=== PATIENT | male | born 1950 | race Caucasian/White ===

== ENCOUNTER 2018-03-03 09:32 | Day surgery (SDC) | payer OTHER ==
[~2018-03-03] VITALS: Ht 188 cm; Wt 90.8 kg
[~2018-03-03 09:32] MED LIST: Aspir-Trin325 MG; METO50ER; OMEPRAZOLE MAGN20 MG
== END 2018-03-03 12:20 | disposition home or self-care (01) ==
LOC: ORSCSDS 09:32
PROVIDERS: Internal Medicine Gastroenterology
PROC: 0DB98ZX Excision of Duodenum, Via Natural or Artificial Opening Endoscopic, Diagnostic (ICD-10-PCS; principal; 2018-03-03 11:00)
PROC: 0DB68ZX Excision of Stomach, Via Natural or Artificial Opening Endoscopic, Diagnostic (ICD-10-PCS; principal; 2018-03-03 11:00)
DX: D50.9 Iron deficiency anemia, unspecified (principal); K25.9 Gastric ulcer, unspecified as acute or chronic, without hemorrhage or perforation; K44.9 Diaphragmatic hernia without obstruction or gangrene; Z80.0 Family history of malignant neoplasm of digestive organs; E78.5 Hyperlipidemia, unspecified; I10 Essential (primary) hypertension; I48.91 Unspecified atrial fibrillation; Z87.891 Personal history of nicotine dependence; Z79.82 Long term (current) use of aspirin; Z79.899 Other long term (current) drug therapy
CPT/HCPCS: 88305; 88342; J2250

== ENCOUNTER 2018-09-09 09:31 | Day surgery (SDC) | payer OTHER ==
[~2018-09-09] VITALS: Ht 188 cm; Wt 90.8 kg
[~2018-09-09 09:31] MED LIST changes: +ALEVE220 MG PO; +ASCO500 PO; +ASPI325EC PO; +ATOR10 PO; +Coq-10100 MG PO; +Ferrous Sulfat325 M2 PO; +METO100ER PO; +OMEPRAZOLE MAGN20 MG PO; +VITAMIN B125000 MCG PO
== END 2018-09-09 12:04 | disposition home or self-care (01) ==
LOC: ORSCSDS 09:31
PROVIDERS: Internal Medicine Gastroenterology
PROC: 0DBL8ZX Excision of Transverse Colon, Via Natural or Artificial Opening Endoscopic, Diagnostic (ICD-10-PCS; principal; 2018-09-09 10:45)
DX: D50.9 Iron deficiency anemia, unspecified (principal); D12.3 Benign neoplasm of transverse colon; K57.30 Diverticulosis of large intestine without perforation or abscess without bleeding; K64.8 Other hemorrhoids; Z80.0 Family history of malignant neoplasm of digestive organs; I48.1 Persistent atrial fibrillation; G60.9 Hereditary and idiopathic neuropathy, unspecified; E78.5 Hyperlipidemia, unspecified; Z79.899 Other long term (current) drug therapy; Z79.82 Long term (current) use of aspirin
CPT/HCPCS: 88305; J7120

== ENCOUNTER 2019-04-11 05:57 | Day surgery (SDC) | payer OTHER ==
[2019-04-11] MEDS ORDERED: XARELTO20 MG PO (06:39)
--- NOTE | 2019-04-11 08:05 | NUR ---
PT VERBALIZED UNDERSTANDING OF WRITTEN AND VERBAL D/C INST. IV REMOVED. PT TAKEN OUT OF THE HRT CENTER VIA W/C.
== END 2019-04-11 22:54 | disposition home or self-care (01) ==
LOC: MHTC 05:57
DX: I48.1 Persistent atrial fibrillation (principal)
CPT/HCPCS: 92960; 93005; 93010; 99152; J2250; J3010; J7030

== ENCOUNTER → 2022-03-23 | Outpatient (CLI) | payer MEDICARE ==
[~2022-03-23] MED LIST changes: +XARELTO20 MG PO
[2022-03-24 13:49] LABS: Stool Occult Bld Immuno 1 Negative (NEGATIVE)
== END | disposition home or self-care (01) ==
LOC: LAB SHORT 11:50 → LAB 11:50 → LAB SHORT 03-24 11:50
PROVIDERS: Internal Medicine
DX: D50.9 Iron deficiency anemia, unspecified (principal)
CPT/HCPCS: 82274

== ENCOUNTER → 2024-06-20 | Outpatient (CLI) | payer MEDICARE ==
[~2024-06-20] MED LIST changes: +ASPI325; +Tambocor100 MG
[2024-06-20 15:22] LABS: Stool Occult Bld Immuno 1 Negative (NEGATIVE)
== END | disposition home or self-care (01) ==
LOC: LAB 10:54 → LAB SHORT 10:54
PROVIDERS: Internal Medicine
DX: E61.1 Iron deficiency (principal)
CPT/HCPCS: 82274

== ENCOUNTER 2025-07-31 08:14 | Day surgery (SDC) | payer MEDICARE ==
[~2025-07-31] VITALS: Ht 195.6 cm; Wt 90.9 kg
[2025-07-31] MEDS ORDERED: ATOR10 (08:48)
[2025-07-31] MEDS ORDERED: Labetalol HCL 5 MG/ML 4ML Injection (Single Dose) ONE (09:28)
[2025-07-31 10:38] VITALS: BP 120/79
--- NOTE | 2025-07-31 10:46 | NUR ---
07/31/[address] TALKED WITH PT. THAT HIS PROCEDURE WAS UNABLE TO BE DONE R/T HIS HR BEING HIGH. PT.'S HR [id number] WHILE IN SD, AWARE OK TO SEND PT. HOME. PT. HAD HELD HIS METOPROLOL & HIS FLECAINIDE & ASA FOR 7 DAYS. PT. INSTRUCTED THAT WHEN HE COMES BACK FOR HIS COLONOSCOPY THAT HE WILL NEED TO TAKE HIS HEART & BLOOD PRESSURE MEDICATIONS & TO TAKE THEM AFTER TAKING DOSE OF PREP. PT. VERBALIZES UNDERSTANDING & INSTRUCTED DR. DORAN'S OFFICE TO CALL HIM TO RESCHEDULE & GO OVER AGAIN WITH HIM WHAT MEDS TO HOLD & WHAT MEDS TO TAKE. PT. HAS AFIB.
== END 2025-07-31 10:20 | disposition home or self-care (01) ==
LOC: ORSCSDS 08:14
PROVIDERS: Internal Medicine Gastroenterology
PROC: 0DJD8ZZ Inspection of Lower Intestinal Tract, Via Natural or Artificial Opening Endoscopic (ICD-10-PCS; principal; 2025-07-31 09:30)
DX: Z12.11 Encounter for screening for malignant neoplasm of colon (principal); I48.91 Unspecified atrial fibrillation; Z86.0101 Personal history of adenomatous and serrated colon polyps; I10 Essential (primary) hypertension; E78.5 Hyperlipidemia, unspecified; Z79.82 Long term (current) use of aspirin; Z79.899 Other long term (current) drug therapy
CPT/HCPCS: J2704; J7120